=== PATIENT | male | born 1975 | race Caucasian/White ===

== ENCOUNTER 2019-12-28 16:32 | Emergency (ER) | payer MEDICAID ==
[~2019-12-28] VITALS: Ht 180.3 cm; Wt 112.9 kg
[2019-12-28] MEDS: ACETAMINOPHEN 325 MG TABLET PO ONE (17:02)
[2019-12-28] MEDS ORDERED: ACETAMINOPHEN 325 MG TABLET ONE (17:05)
== END 2019-12-28 18:07 | disposition home or self-care (01) ==
LOC: ER 16:35
DX: S93.402A Sprain of unspecified ligament of left ankle, initial encounter (principal); W50.0XXA Accidental hit or strike by another person, initial encounter; Y93.01 Activity, walking, marching and hiking; Y92.89 Other specified places as the place of occurrence of the external cause; I10 Essential (primary) hypertension; F17.210 Nicotine dependence, cigarettes, uncomplicated
CPT/HCPCS: 73610; A4663